=== PATIENT | female | born 1935 | race Two or more races ===

== ENCOUNTER 2022-02-17 11:34 | Emergency (ER) | payer MEDICARE, OTHER ==
[~2022-02-17] VITALS: Ht 157.5 cm; Wt 81.6 kg
[2022-02-17] MEDS ORDERED: PROM118S5 PO (11:53)
[2022-02-17] MEDS ORDERED: VITAMIN D PO (11:53)
[2022-02-17] MEDS ORDERED: LANS30CA56 PO (11:53)
[2022-02-17] MEDS ORDERED: ALBU8.5H8 INH (11:53)
[2022-02-17] MEDS ORDERED: CITA40TA11 PO (11:53)
[2022-02-17] MEDS ORDERED: ROSU5TAB PO (11:53)
[2022-02-17] MEDS ORDERED: CARV3.122 PO (11:53)
[2022-02-17] MEDS ORDERED: FERR324T PO (11:53)
[2022-02-17] MEDS ORDERED: ALBUTEROL SULFATE 2.5 MG/3 ML NEBU NEB ONE (12:00)
[2022-02-17] MEDS ORDERED: IPRATROPIUM BROMIDE 0.5 MG/2.5 ML NEBU NEB ONE (12:00)
[2022-02-17] MEDS ORDERED: IPRATROPIUM BROMIDE 0.5 MG/2.5 ML NEBU ONE (12:11)
[2022-02-17] MEDS ORDERED: ALBUTEROL SULFATE 2.5 MG/3 ML NEBU ONE (12:11)
[2022-02-17 12:27] LABS: HEMATOCRIT 34.8 % (31.2-41.9); MEAN CORPUSCULAR HEMOGLOBIN 26.5 uug (24.7-32.8); MEAN CORPUSCULAR VOLUME 78.7 fL (75.5-95.3); PLATELET COUNT (AUTO) 183 K/uL (179-408)
[2022-02-17 12:32] LABS: CREATININE 0.7 mg/dL (0.6-1.3)
[2022-02-17] MEDS ORDERED: AZIT250T13 PO (12:49)
[2022-02-17] MEDS ORDERED: DEXA6TAB6 PO (12:49)
[2022-02-17] MEDS ORDERED: DEXAMETHASONE SOD PHOSPHATE 4 MG INJ IM ONE (13:00)
[2022-02-17] MEDS ORDERED: DEXAMETHASONE SOD PHOSPHATE 4 MG INJ ONE (13:04)
== END 2022-02-17 13:38 | disposition home or self-care (01) ==
LOC: ER 11:34
DX: U07.1 COVID-19 (principal); R91.8 Other nonspecific abnormal finding of lung field; Z85.3 Personal history of malignant neoplasm of breast
CPT/HCPCS: 36415; 71045; 85025; 87400; A4663; J1100; J3590